=== PATIENT | female | born 1930 | race Caucasian/White ===

== ENCOUNTER 2017-08-03 08:43 | Inpatient (IN) | payer MEDICARE, OTHER ==
[~2017-08-03] VITALS: Ht 162.6 cm; Wt 60.7 kg
[2017-08-03] VITALS (9 sets, daily range): BP systolic 151–243; BP diastolic 67–117; PULSE 45–56; RESP 16–20; TEMP 97.4–97.8; O2SAT 95–99
[~2017-08-03 08:43] MED LIST: AMLO5TAB96 PO; LORTA5 PO; METO50TA PO
[2017-08-03] MEDS ORDERED: SODIUM CHLORIDE 0.9% FLUSH 10 ML FLUSH IVF PRN (09:00)
--- NOTE | 2017-08-03 09:04 | PD ---
HPI Chief Complaint: Dizziness Time Seen by Provider: 09:02 Travel History International Travel<30 days: No Contact w/Intl Traveler<30days: No Traveled to known affect area: No History of Present Illness HPI 87-year-old female patient with history of colon cancer status post hemicolectomy, presents to the ER today because she states that she started having dizziness since yesterday, feels that she is unstable to walk. She denies any difficulty talking, numbness or weakness in arm or leg, headaches, chest pains, fevers, vomiting, abdominal pains, or any other symptoms. She denies any previous symptoms of dizziness. She states her blood pressure has been high over last few days which she has no history of elevated blood pressure. Modifying Factors: None Associated Signs & Symptoms: Dizziness, elevated blood pressure Risk Factors: None PFSH Past Medical History Cancer: No Cardiovascular Problems: No Diabetes: No Endocrine: No Gastrointestinal Disorders: Yes (gerd) Glaucoma: No Genitourinary: No Hepatitis: No Hiatal Hernia: No Hypertension: Yes Immune Disorder: No Musculoskeletal: No Neurologic: No Psychiatric: No Reproductive: No Respiratory: No Thyroid Disease: Yes (thyroid surgery in the past) Influenza Vaccination: Yes ?: Not Past Surgical History Abdominal Surgery: Yes (APPENDECTOMY) AICD: No Cardiac Surgery: No Cholecystectomy: Yes (2002) Ear Surgery: No Endocrine Surgery: No Eye Surgery: No Genitourinary Surgery: No Gynecologic Surgery: Yes (HYSTERECTOMY) Hysterectomy: Yes (1991) Oral Surgery: No Pacemaker: No Thoracic Surgery: No Social History Alcohol Use: No Tobacco Use: No Substance Use: No Allergies-Medications (Allergen,Severity, Reaction): Coded Allergies: No Known Allergies (Verified Allergy, Unknown, 08/03/17) Reported Meds & Prescriptions Reported Meds & Active Scripts Active No Active Prescriptions or Reported Medications Review of Systems Except as stated in HPI: all other systems reviewed are Neg Physical Exam Narrative GENERAL: Well-developed elderly white female patient currently in mild distress at awake and oriented 3. SKIN: Focused skin assessment warm/dry. HEAD: Atraumatic. Normocephalic. EYES: Pupils round, equal and round and reactive to light bilaterally. No scleral icterus. No injection or drainage. ENT: No nasal bleeding or discharge. Mucous membranes pink and moist. NECK: Trachea midline. No JVD. Supple. CARDIOVASCULAR: Regular rate and rhythm. No murmur appreciated. RESPIRATORY: No accessory muscle use. Clear to auscultation. Breath sounds equal bilaterally. GASTROINTESTINAL: Abdomen soft, non-tender, nondistended. Hepatic and splenic margins not palpable. MUSCULOSKELETAL: No obvious deformities. No clubbing. No cyanosis. No edema. NEUROLOGICAL: Awake and alert. No obvious cranial nerve deficits. Motor grossly within normal limits. Normal speech. No pronator drift. PSYCHIATRIC: Appropriate mood and affect; insight and judgment normal. Data Data Last Documented VS Vital Signs Date Time Temp Pulse Resp B/P (MAP) Pulse Ox O2 Delivery O2 Flow Rate FiO2 08/03/17 10:13 48 16 227/78 (127) 98 08/03/17 08:44 97.7 Orders Orders Electrocardiogram (08/03/17 08:56) Complete Blood Count With Diff (08/03/17 08:56) Comprehensive Metabolic Panel (08/03/17 08:56) Ckmb (Isoenzyme) Profile (08/03/17 08:56) Troponin I (08/03/17 08:56) Urinalysis - C+S If Indicated (08/03/17 08:56) Chest, Single Ap (08/03/17 08:56) Ct Brain W/O Iv Contrast(Rout) (08/03/17 08:56) Ecg Monitoring (08/03/17 08:56) Iv Access Insert/Monitor (08/03/17 08:56) Oximetry (08/03/17 08:56) Sodium Chloride 0.9% Flush (Ns Flush) (08/03/17 09:00) Clonidine (Catapres) (08/03/17 09:45) Urine Culture (08/03/17 09:35) Lactic Acid Sepsis Protocol (08/03/17 10:36) Blood Culture (08/03/17 10:36) Piperacil-Tazo 4.5 Gm Premix (Zosyn 4.5 (08/03/17 10:36) Admit Order (Ed Use Only) (08/03/17 10:36) Labs Laboratory Tests Test 08/03/17 09:10 08/03/17 09:35 White Blood Count 7.9 TH/MM3 Red Blood Count 4.52 MIL/MM3 Hemoglobin 13.5 GM/DL Hematocrit 40.4 % Mean Corpuscular Volume 89.4 FL Mean Corpuscular Hemoglobin 29.8 PG Mean Corpuscular Hemoglobin Concent 33.3 % Red Cell Distribution Width 12.7 % Platelet Count 210 TH/MM3 Mean Platelet Volume 8.1 FL Neutrophils (%) (Auto) 72.5 % Lymphocytes (%) (Auto) 22.4 % Monocytes (%) (Auto) 2.5 % Eosinophils (%) (Auto) 2.0 % Basophils (%) (Auto) 0.6 % Neutrophils # (Auto) 5.8 TH/MM3 Lymphocytes # (Auto) 1.8 TH/MM3 Monocytes # (Auto) 0.2 TH/MM3 Eosinophils # (Auto) 0.2 TH/MM3 Basophils # (Auto) 0.0 TH/MM3 CBC Comment DIFF FINAL Differential Comment Blood Urea Nitrogen 25 MG/DL Creatinine 1.30 MG/DL Random Glucose 128 MG/DL Total Protein 6.8 GM/DL Albumin 3.3 GM/DL Calcium Level 8.6 MG/DL Alkaline Phosphatase 88 U/L Aspartate Amino Transf (AST/SGOT) 24 U/L Alanine Aminotransferase (ALT/SGPT) 22 U/L Total Bilirubin 0.4 MG/DL Sodium Level 144 MEQ/L Potassium Level 3.9 MEQ/L Chloride Level 113 MEQ/L Carbon Dioxide Level 21.5 MEQ/L Anion Gap 10 MEQ/L Estimat Glomerular Filtration Rate 39 ML/MIN Total Creatine Kinase 38 U/L Troponin I LESS THAN 0.02 NG/ML Urine Collection Type CLEAN CATCH Urine Color YELLOW Urine Turbidity MOD Urine pH 5.5 Urine Specific [place] 1.015 Urine Protein 30 mg/dL Urine Glucose (UA) NEG mg/dL Urine Ketones NEG mg/dL Urine Occult Blood MOD Urine Nitrite NEG Urine Bilirubin NEG Urine Leukocyte Esterase MOD Urine RBC 10-14 /hpf Urine WBC 20-24 /hpf Urine WBC Clumps FEW Urine Squamous Epithelial Cells > 8 /hpf Urine Amorphous Sediment MOD Urine Bacteria MOD /hpf Microscopic Urinalysis Comment CULTURE INDICATED Urine Collection Time 0935 MDM Medical Decision Making Medical Screen Exam Complete: Yes Emergency Medical Condition: Yes Medical Record Reviewed: Yes Interpretation(s) EKG shows normal sinus rhythm at a rate of 60 bpm with occasional PACs. No signs of acute ST-T elevations or depressions. Laboratory Tests Test 08/03/17 09:10 08/03/17 09:35 Neutrophils (%) (Auto) 72.5 % (16.0-70.0) Blood Urea Nitrogen 25 MG/DL (7-18) Creatinine 1.30 MG/DL (0.50-1.00) Random Glucose 128 MG/DL (74-106) Albumin 3.3 GM/DL (3.4-5.0) Chloride Level 113 MEQ/L (98-107) Estimat Glomerular Filtration Rate 39 ML/MIN (>89) Troponin I LESS THAN 0.02 NG/ML Urine Turbidity MOD (CLEAR) Urine Protein 30 mg/dL (NEG-TRACE) Urine Occult Blood MOD (NEG) Urine Leukocyte Esterase MOD (NEG) Urine RBC 10-14 /hpf (0-3) Urine WBC 20-24 /hpf (0-5) Urine WBC Clumps FEW (NONE) Urine Squamous Epithelial Cells > 8 /hpf (0-5) Urine Bacteria MOD /hpf (NONE) Last [address] 08/03/17 0856 Signed Impressions: Service Date/Time: Thursday, August 03, 2017 09:22 - CONCLUSION: No acute disease. Valdo Schmidt MD Chest X-Ray 08/03/17855 Signed Impressions: Service Date/Time: Thursday, August 03, 2017 09:43 - CONCLUSION: No acute disease. Valdo Schmidt MD Differential Diagnosis Dizzy, elevated blood pressures: Hypertensive urgency versus dehydration versus dysrhythmias versus CVA versus benign positional vertigo Narrative Course Patient was given clonidine 9 for her elevated blood pressure. Initial EKG did not show any signs of acute ST-T changes. CAT scan did not show any signs of acute intracranial processes. She is not having any focal neurological deficits in the ER although she is feeling unsteady. Her lab work shows significant UTI which was treated with IV antibiotics after cultures were drawn. My plan would be to admit her for further evaluation and treatment. Case was discussed with Dr. Marie for admission. Diagnosis Primary Impression: Hypertensive urgency Additional Impression: Abnormal urinalysis Admitting Information Admitting Physician Requests: Admit Scripts No Active Prescriptions or Reported Meds Christen Adams MD Aug 03, 2017 09:04
[2017-08-03 09:24] LABS: AUTOMATED NEUTROPHIL # 5.8 TH/MM3 (1.8-7.7); BASOPHIL % 0.6 % (0.0-2.0); EOSINOPHIL # 0.2 TH/MM3 (0-0.4); HEMATOCRIT 40.4 % (35.0-46.0); HEMO FLAGS DIFF FINAL; LYMPH % 22.4 % (9.0-44.0); LYMPHOCYTE # 1.8 TH/MM3 (1.0-4.8); MEAN CELL VOLUME 89.4 FL (80.0-100.0); MEAN CORPUSCULAR HEMOGLOBIN 29.8 PG (27.0-34.0); MEAN CORPUSCULAR HGB CONC 33.3 % (32.0-36.0); MONO % 2.5 % (0.0-8.0); NEUT % 72.5 % (16.0-70.0); PLATELET COUNT 210 TH/MM3 (150-450); RED BLOOD COUNT 4.52 MIL/MM3 (4.00-5.30); RED CELL DISTRIBUTION WIDTH 12.7 % (11.6-17.2); WHITE BLOOD COUNT 7.9 TH/MM3 (4.0-11.0)
--- NOTE | 2017-08-03 09:36 | RADRPT ---
EXAM DATE/TIME: 08/03/2017 09:22 [facility] COMPARISON: No previous studies available for comparison. INDICATIONS : Dizziness. RADIATION DOSE: 59.09 CTDIvol (mGy) MEDICAL HISTORY : Hypertension. SURGICAL HISTORY : Appendectomy. Cholecystectomy.Hysterectomy. ENCOUNTER: Initial ACUITY: 2 days PAIN SCALE: 0/10 LOCATION: cranial TECHNIQUE: Multiple contiguous axial images were obtained of the head. Using automated exposure control and adj ustment of the mA and/or kV according to patient size, radiation dose was kept as low as reasonably a chievable to obtain optimal diagnostic quality images. DICOM format image data is available electro nically for review and comparison. FINDINGS: CEREBRUM: The ventricles are normal for age. No evidence of midline shift, mass lesion, hemorrhage or acute in farction. No extra-axial fluid collections are seen. POSTERIOR FOSSA: The cerebellum and brainstem are intact. The 4th ventricle is midline. The cerebellopontine angle i s unremarkable. EXTRACRANIAL: The visualized portion of the orbits is intact. SKULL: The calvaria is intact. No evidence of skull fracture. CONCLUSION: No acute disease. Valdo Schmidt MD on August 03, 2017 at 9:32 Board Certified Radiologist. This report was verified electronically.
[2017-08-03] MEDS ORDERED: cloNIDine HCL 0.1 MG TAB PO ONE (09:45)
[2017-08-03 09:49] LABS: BICARBONATE 21.5 MEQ/L (21.0-32.0)
[2017-08-03 09:53] LABS: AST (GOT) 24 U/L (15-37); GLOMERULAR FILTRATION RATE 39 ML/MIN (>89)
[2017-08-03 09:54] LABS: TOTAL BILIRUBIN ADULT 0.4 MG/DL (0.2-1.0)
[2017-08-03 09:56] LABS: ALKALINE PHOSPHATASE 88 U/L (45-117)
[2017-08-03 09:56] LABS: BLOOD, URINE MOD (NEG); GLUCOSE,URINE NEG (NEG); KETONE, URINE NEG (NEG); NITRITE,URINE NEG (NEG); PH, URINE 5.5 (5.0-8.5)
[2017-08-03 09:57] LABS: METHOD OF COLLECTION CLEAN CATCH; URINE COLOR YELLOW (YELLW/STRAW)
[2017-08-03 09:57] LABS: ALT (GPT) 22 U/L (10-53)
[2017-08-03 09:58] LABS: ANION GAP 10 MEQ/L (5-15); BLOOD UREA NITROGEN 25 MG/DL (7-18); CHLORIDE 113 MEQ/L (98-107); POTASSIUM 3.9 MEQ/L (3.5-5.1); SODIUM (NA) 144 MEQ/L (136-145)
[2017-08-03 10:00] LABS: BACTERIA, URINE MOD /hpf; CULTURE IF INDICATED CULTURE INDICATED; SQUAMOUS EPITHELIAL CELL URINE > 8 /hpf (0-5)
[2017-08-03 10:01] LABS: COMMENT (UR) CULTURE INDICATED; COMMENT2 (UR) MUCOUS PRESENT
[2017-08-03 10:04] LABS: CREATINE KINASE 38 U/L (26-192)
--- NOTE | 2017-08-03 10:20 | RADRPT ---
EXAM DATE/TIME: 08/03/2017 09:43 [facility] COMPARISON: CHEST SINGLE AP, January 26, 2015, 15:56. INDICATIONS : Dizzy, weak, palpitations MEDICAL HISTORY : None. SURGICAL HISTORY : None. ENCOUNTER: Initial ACUITY: 2 days PAIN SCORE: 0/10 LOCATION: Bilateral chest FINDINGS: A single view of the chest demonstrates the lungs to be symmetrically aerated without evidence of mas s, infiltrate or effusion. The cardiomediastinal contours are unremarkable. Osseous structures are intact. CONCLUSION: No acute disease. Valdo Schmidt MD on August 03, 2017 at 10:17 Board Certified Radiologist. This report was verified electronically.
[2017-08-03] MEDS ORDERED: PIPERACIL-TAZO 4.5 GM PREMIX 100 ML IV STA (10:36)
--- NOTE | 2017-08-03 11:11 | HHI.HP ---
[facility] Service [facility] Primary Care Physician Silvestre Valente MD Admission Diagnosis hypertensive urgency/dizziness/UTI/sepsis Diagnoses: Chief Complaint: Dizziness Travel History International Travel<30 Days: No Contact w/Intl Traveler <30 Da: No Traveled to Known Affected Are: No History of Present Illness Patient is a 87-year-old female with a remote history of colon cancer and thyroidectomy who comes emergently complaining of excessive dizziness for one day. She could not walk he cause of the dizziness. She had no focal deficits in the limbs or slurred speech. When she came to emergency room her blood pressure was quite elevated at 245/112. Patient has not had any fevers or chills. She has had vague chest discomfort over the last 48 hours but there are no aggravating arm relieving symptoms associated with this. Since she is come to the emergency room she did receive some clonidine with some improvement. Her medical history is significant for hypertension and her reported meds include metoprolol Norvasc and hydrocodone. She denies taking any blood pressure medications for at least a year. She says her doctor took her off of them because her blood pressure was doing well. Patient's been admitted to the hospital for hypertensive urgency and she and her sister are in agreement with this Review of Systems Constitutional: COMPLAINS OF: Dizziness, DENIES: Diaphoretic episodes, Fatigue , Fever, Weight gain, Weight loss, Chills, Change in appetite, Night Sweats Endocrine: DENIES: Abnorml menstrual pattern, Heat/cold intolerance, Polydipsia , Polyuria, Polyphagia Eyes: DENIES: Blurred vision, Diplopia, Eye inflammation, Eye pain, Vision loss , Photosensitivity, Double Vision Ears, nose, mouth, throat: DENIES: Tinnitus, Hearing loss, Vertigo, Nasal discharge, Oral lesions, Throat pain, Hoarseness, Ear Pain, Running Nose, Epistaxis, Sinus Pain, Toothache, Odynophagia Respiratory: DENIES: Apneas, Cough, Snoring, Wheezing, Hemoptysis, Sputum production, Shortness of breath Cardiovascular: COMPLAINS OF: Chest pain, DENIES: Palpitations, Syncope, Dyspnea on Exertion, PND, Lower Extremity Edema, Orthopnea, Claudication Gastrointestinal: DENIES: Abdominal pain, Black stools, Bloody stools, Constipation, Diarrhea, Nausea, Vomiting, Difficulty Swallowing, Anorexia Genitourinary: DENIES: Abnormal vaginal bleeding, Dysmenorrhea, Dyspareunia, Sexual dysfunction, Urinary frequency, Urinary incontinence, Urgency, Hematuria , Dysuria, Nocturia, Vaginal discharge Musculoskeletal: DENIES: Joint pain, Muscle aches, Stiffness, Joint Swelling, Back pain, Neck pain Integumentary: DENIES: Abnormal pigmentation, Pruritus, Rash, Nail changes, Breast masses, Breast skin changes, Nipple discharge Hematologic/lymphatic: DENIES: Bruising, Lymphadenopathy Immunologic/allergic: DENIES: Eczema, Urticaria Neurologic: DENIES: Abnormal gait, Headache, Localized weakness, Paresthesias, Seizures, Speech Problems, Tremor, Poor Balance Psychiatric: DENIES: Anxiety, Confusion, Mood changes, Depression, Hallucinations, Agitation, Suicidal Ideation, Homicidal Ideation, Delusions Except as stated in HPI: all other systems reviewed are Neg Past Family Social History Past Medical History Hypertension, previous the controlled off medications Past Surgical History Thyroidectomy Hysterectomy Reported Medications Reviewed in the EMR, patient denies taking any medications Allergies: Coded Allergies: No Known Allergies (Verified Adverse Reaction, Unknown, 08/03/17) Active Ordered Medications Reviewed in the EMR Family History Does not know her parents history as they quite a while ago, her sister is at the bedside says she has hypertension Social History No current tobacco or alcohol dependency, lives independently Physical Exam Vital Signs Vital Signs Date Time Temp Pulse Resp B/P (MAP) Pulse Ox O2 Delivery O2 Flow Rate FiO2 08/03/17 10:45 45 16 165/67 (99) 97 08/03/17 10:13 48 16 227/78 (127) 98 08/03/17 09:40 49 16 237/117 (157) 98 08/03/17 08:50 98 08/03/17 08:44 97.7 56 16 243/105 (151) 98 Physical Exam GENERAL: This is a well-nourished, well-developed patient, in no apparent distress. SKIN: No rashes, ecchymoses or lesions. Cool and dry. HEAD: Atraumatic. Normocephalic. No temporal or scalp tenderness. EYES: Pupils equal round and reactive. Extraocular motions intact. No scleral icterus. No injection or drainage. ENT: Nose without bleeding, purulent drainage or septal hematoma. Throat without erythema, tonsillar hypertrophy or exudate. Uvula midline. Airway patent. NECK: Trachea midline. No JVD or lymphadenopathy. Supple, nontender, no meningeal signs. CARDIOVASCULAR: Regular rate and rhythm without murmurs, gallops, or rubs. RESPIRATORY: Clear to auscultation. Breath sounds equal bilaterally. No wheezes , rales, or rhonchi. GASTROINTESTINAL: Abdomen soft, non-tender, nondistended. No hepato-splenomegaly , or palpable masses. No guarding. MUSCULOSKELETAL: Extremities without clubbing, cyanosis, or edema. No joint tenderness, effusion, or edema noted. No calf tenderness. Negative Homans sign bilaterally. NEUROLOGICAL: Awake and alert. Cranial nerves II through XII intact. Motor and sensory grossly within normal limits. Five out of 5 muscle strength in all muscle groups. Normal speech. Laboratory Laboratory Tests Test 08/03/17 09:10 08/03/17 09:35 08/03/17 10:45 White Blood Count 7.9 Red Blood Count 4.52 Hemoglobin 13.5 Hematocrit 40.4 Mean Corpuscular Volume 89.4 Mean Corpuscular Hemoglobin 29.8 Mean Corpuscular Hemoglobin Concent 33.3 Red Cell Distribution Width 12.7 Platelet Count 210 Mean Platelet Volume 8.1 Neutrophils (%) (Auto) 72.5 Lymphocytes (%) (Auto) 22.4 Monocytes (%) (Auto) 2.5 Eosinophils (%) (Auto) 2.0 Basophils (%) (Auto) 0.6 Neutrophils # (Auto) 5.8 Lymphocytes # (Auto) 1.8 Monocytes # (Auto) 0.2 Eosinophils # (Auto) 0.2 Basophils # (Auto) 0.0 CBC Comment DIFF FINAL Differential Comment Blood Urea Nitrogen 25 Creatinine 1.30 Random Glucose 128 Total Protein 6.8 Albumin 3.3 Calcium Level 8.6 Alkaline Phosphatase 88 Aspartate Amino Transf (AST/SGOT) 24 Alanine Aminotransferase (ALT/SGPT) 22 Total Bilirubin 0.4 Sodium Level 144 Potassium Level 3.9 Chloride Level 113 Carbon Dioxide Level 21.5 Anion Gap 10 Estimat Glomerular Filtration Rate 39 Total Creatine Kinase 38 Troponin I LESS THAN 0.02 Urine Collection Type CLEAN CATCH Urine Color YELLOW Urine Turbidity MOD Urine pH 5.5 Urine Specific [place] 1.015 Urine Protein 30 Urine Glucose (UA) NEG Urine Ketones NEG Urine Occult Blood MOD Urine Nitrite NEG Urine Bilirubin NEG Urine Leukocyte Esterase MOD Urine RBC 10-14 Urine WBC 20-24 Urine WBC Clumps FEW Urine Squamous Epithelial Cells > 8 Urine Amorphous Sediment MOD Urine Bacteria MOD Microscopic Urinalysis Comment CULTURE INDICATED Urine Collection Time 0935 Date/Time Source Procedure Growth Status 08/03/17 10:45 Blood Peripheral Aerobic Blood Culture Pending Received 08/03/17 10:45 Blood Peripheral Anaerobic Blood Culture Pending Received 08/03/17 09:35 Urine Clean Catch Urine Culture Pending Received Result Diagram: 08/03/17 0910 08/03/17 0910 Imaging Last Impressions Head CT 08/03/17 0856 Signed Impressions: Service Date/Time: Thursday, August 03, 2017 09:22 - CONCLUSION: No acute disease. Valdo Schmidt MD Chest X-Ray 08/03/17 0856 Signed Impressions: Service Date/Time: Thursday, August 03, 2017 09:43 - CONCLUSION: No acute disease. Valdo Schmidt MD Caprini VTE Risk Assessment Caprini VTE Risk Assessment: Mod/High Risk (score >= 2) Caprini Risk Assessment Model Point Value = 1 Point Value = 2 Point Value = 3 Point Value = 5 Age 41-60 Minor surgery BMI > 25 kg/m2 Swollen legs Varicose veins or History of unexplained or recurrent spontaneous Oral contraceptives or hormone replacement Sepsis (< 1 month) Serious lung disease, including pneumonia (< 1 month) Abnormal pulmonary function Acute myocardial infarction Congestive heart failure (< 1 month) History of inflammatory bowel disease Medical patient at bed rest Age 61-74 Arthroscopic surgery Major open surgery (> 45 min) Laparoscopic surgery (> 45 min) Malignancy Confined to bed (> 72 hours) Immobilizing plaster cast Central venous access Age >= 75 History of VTE Family history of VTE Factor V Leiden Prothrombin [id number] Lupus anticoagulant Anticardiolipin antibodies Elevated serum homocysteine Heparin-induced thrombocytopenia Other congenital or acquired thrombophilia Stroke (< 1 month) Elective arthroplasty Hip, pelvis, or leg fracture Acute spinal cord injury (< 1 month) Prophylaxis Regimen Total Risk Factor Score Risk Level Prophylaxis Regimen 0-1 Low Early ambulation 2 Moderate Order ONE of the following: *Sequential Compression Device (SCD) *Heparin 5000 units SQ BID 3-4 Higher Order ONE of the following medications: *Heparin 5000 units SQ TID *Enoxaparin/Lovenox 40 mg SQ daily (WT < 150 kg, CrCl > 30 mL/min) *Enoxaparin/Lovenox 30 mg SQ daily (WT < 150 kg, CrCl > 10-29 mL/min) *Enoxaparin/Lovenox 30 mg SQ BID (WT < 150 kg, CrCl > 30 mL/min) AND/OR *Sequential Compression Device (SCD) 5 or more Highest Order ONE of the following medications: *Heparin 5000 units SQ TID (Preferred with Epidurals) *Enoxaparin/Lovenox 40 mg SQ daily (WT < 150 kg, CrCl > 30 mL/min) *Enoxaparin/Lovenox 30 mg SQ daily (WT < 150 kg, CrCl > 10-29 mL/min) *Enoxaparin/Lovenox 30 mg SQ BID (WT < 150 kg, CrCl > 30 mL/min) AND *Sequential Compression Device (SCD) Assessment and Plan Problem List: (1) Hypertensive urgency ICD Code: I16.0 - Hypertensive urgency Plan: Patient denies taking medications for blood pressure although metoprolol and Norvasc are listed. She says she has blood pressure in the past and had been off medications for at least a year. Will resume blood pressure medications Rule out CVA, MRI pending, CT brain unremarkable (2) Abnormal urinalysis ICD Code: R82.90 - Unspecified abnormal findings in urine Plan: Patient received empiric antibiotics in the emergency room She has no signs or symptoms of a urinary tract infection We'll follow cultures Physician Certification 2 Midnight Certification Type: Admission for Inpatient Services Order for Inpatient Services The services are ordered in accordance with Medicare regulations or non- Medicare payer requirements, as applicable. In the case of services not specified as inpatient-only, they are appropriately provided as inpatient services in accordance with the 2-midnight benchmark. Estimated LOS (days): 3 3 days is the estimated time the patient will need to remain in the hospital, assuming treatment plan goals are met and no additional complications. Post-Hospital Plan: Ilsa Rose MD Aug 03, 2017 11:11
[2017-08-03] MEDS ORDERED: SODIUM CHLORIDE 0.9% FLUSH 10 ML FLUSH IV FLUSH PRN (11:15)
[2017-08-03] MEDS ORDERED: ONDANSETRON HCL 4 MG/2 ML VIAL IVP PRN (11:15)
[2017-08-03] MEDS ORDERED: ACETAMINOPHEN 325 MG TAB PO PRN (11:15)
[2017-08-03] MEDS ORDERED: SENNOSIDES 8.6 MG TAB PO PRN (11:15)
[2017-08-03] MEDS ORDERED: NALOXONE HCL 0.4 MG/ML AMP IV PUSH PRN (11:15)
[2017-08-03] MEDS ORDERED: ENOXAPARIN SODIUM 40 MG/0.4 ML SYRINGE SQ SCH (12:00)
--- NOTE | 2017-08-03 12:34 | EKG ---
Date Performed: 08/03/2017 Time Performed: 09:40:46 PTAGE: 87 years EKG: Sinus rhythm WITH OCCASIONAL SUPRAVENTRICULAR PREMATURE COMPLEXES, NONSPECIFIC ST ABNORMALITY ABNORMAL ECG PREVIOUS TRACING : 03/26/2015 20.49 Compared to previous tracing, sinus rhythm has replaced atr ial fibrillation, heart rate has decreased. DOCTOR: Nicholas Leger Interpretating Date/Time 08/03/2017 12:33:07
--- NOTE | 2017-08-03 13:48 | RADRPT ---
EXAM DATE/TIME: 08/03/2017 11:51 [facility] COMPARISON: No previous studies available for comparison. INDICATIONS : Cerebrovascular accident. MEDICAL HISTORY : Thyroid disease. HTN. GERD. SURGICAL HISTORY : Appendectomy. Hysterectomy. Cholecystectomy. Thyroid surgery. ENCOUNTER: Initial ACUITY: 1 day PAIN SCORE: 0/10 LOCATION: Bilateral neck PEAK SYSTOLIC VELOCITIES (cm/sec): ICA/CCA RATIO: Right: 2.3 Left: 1.3 ICA: Right: 129 Left: 95 CCA: Right: 56 Left: 76 ECA: Right: 63 Left: 78 VERTEBRAL: Right: 44 antegrade Left: 77 antegrade Elevated flow velocities and ICA/CCA ratios have been found to correlate with increased degrees of vessel stenosis, calculated as percentage of diameter relative to a normal segment of distal ICA/CCA FINDINGS: RIGHT CAROTID: There is slight elevation of the peak systolic velocity of the right ICA and an elevated ICA/CCA rati o suggesting 50-69% stenosis on the right. LEFT CAROTID: No significant stenosis is visualized. The waveforms are within normal limits. VERTEBRAL ARTERIES: Antegrade flow is seen in both vertebral arteries. MISCELLANEOUS: None. CONCLUSION: Slight elevation of the peak systolic velocity of the right ICA and elevated ICA/CCA ratio suggesting 50-69% stenosis on the right. Valdo Schmidt MD on August 03, 2017 at 13:44 Board Certified Radiologist. This report was verified electronically.
--- NOTE | 2017-08-03 17:01 | RADRPT ---
EXAM DATE/TIME: 08/03/2017 16:33 [facility] COMPARISON: No previous studies available for comparison. INDICATIONS : Dizziness. MEDICAL HISTORY : Hypertension. Carcinoma, colon. SURGICAL HISTORY : Thyroidectomy. Appendectomy. Hysterectomy. ENCOUNTER: Initial ACUITY: 1 day PAIN SCORE: 0/10 LOCATION: cranial TECHNIQUE: Multiplanar, multisequence MRI of the brain was performed without contrast. FINDINGS: CEREBRUM: The ventricles and cortical sulci are widened. No evidence of midline shift, mass lesion, hemorrhage or acute infarction. No extraaxial fluid collections are seen. The pituitary gland and suprasellar cistern are normal in configuration. WHITE MATTER: There are some scattered mild focal areas of signal abnormality within the cerebral white matter. POSTERIOR FOSSA: The cerebellum and brainstem are intact. The 4th ventricle is midline. The cerebellopontine angle is unremarkable. The cerebellar tonsils are normal in position. DIFFUSION IMAGING: No focal areas of restricted diffusion are seen. No evidence of acute infarction. EXTRACRANIAL: The visualized portions of the orbits and paranasal sinuses are unremarkable. CONCLUSION: 1. No acute intracranial abnormality seen. 2. Scattered suspected small vessel ischemic change in the white matter. 3. Mild age-related atrophy. Roe Menendez MD on August 03, 2017 at 16:55 Board Certified Radiologist. This report was verified electronically.
[2017-08-03] MEDS: HYDROCHLOROTHIAZIDE 25 MG TAB PO SCH (17:51)
[2017-08-03] MEDS: aMILoride HCL 5 MG TAB PO SCH (17:51)
[2017-08-03] MEDS: SODIUM CHLORIDE 0.9% FLUSH 10 ML FLUSH IV FLUSH SCH (21:25)
[2017-08-04] VITALS: BP 158/78; PULSE 63; RESP 18; TEMP 97.6; O2SAT 96
[2017-08-04 06:13] LABS: BASOPHIL % 0.4 % (0.0-2.0); EOSINOPHIL # 0.2 TH/MM3 (0-0.4); EOSINOPHIL % 3.1 % (0.0-4.0); HEMATOCRIT 35.9 % (35.0-46.0); HEMO FLAGS DIFF FINAL; LYMPH % 25.8 % (9.0-44.0); LYMPHOCYTE # 1.6 TH/MM3 (1.0-4.8); MEAN CELL VOLUME 91.8 FL (80.0-100.0); MEAN CORPUSCULAR HEMOGLOBIN 30.3 PG (27.0-34.0); NEUT % 65.7 % (16.0-70.0); PLATELET COUNT 177 TH/MM3 (150-450); RED BLOOD COUNT 3.91 MIL/MM3 (4.00-5.30); RED CELL DISTRIBUTION WIDTH 12.9 % (11.6-17.2); WHITE BLOOD COUNT 6.1 TH/MM3 (4.0-11.0)
[2017-08-04 06:17] LABS: POTASSIUM 3.9 MEQ/L (3.5-5.1)
[2017-08-04 06:20] LABS: BICARBONATE 23.3 MEQ/L (21.0-32.0)
[2017-08-04 08:00] VITALS: BP 206/90; PULSE 51; PULSE 58; RESP 18; TEMP 97.4; O2SAT 98
[2017-08-04] MEDS: aMILoride HCL 5 MG TAB PO SCH (08:34)
[2017-08-04] MEDS: SODIUM CHLORIDE 0.9% FLUSH 10 ML FLUSH IV FLUSH SCH ×2 (08:34→21:11)
[2017-08-04] MEDS: HYDROCHLOROTHIAZIDE 25 MG TAB PO SCH (08:34)
[2017-08-04] MEDS ORDERED: amLODIPine BESYLATE 5 MG TAB PO SCH (09:00)
[2017-08-04 11:10] VITALS: BP 193/76
[2017-08-04] MEDS: ENALAPRILAT 1.25 MG/ML VIAL IV PUSH PRN (11:15)
[2017-08-04] MEDS: ENOXAPARIN SODIUM 30 MG/0.3 ML SYRINGE SQ SCH (11:20)
--- NOTE | 2017-08-04 11:58 | HHI.PR ---
Subjective Remarks Patient seen today in follow-up for hypertensive urgency. Still a bit dizzy when ambulating. Blood pressure 206/90 and heart rate in the 50s no chest pain or shortness of breath Imaging results discussed with patient and sister at bedside Care plan discussed with Clif FREEMAN Objective Vitals Vital Signs Date Time Temp Pulse Resp B/P (MAP) Pulse Ox O2 Delivery O2 Flow Rate FiO2 08/04/17 11:10 193/76 (115) 08/04/17 08:00 97.4 58 18 206/90 (128) 98 08/04/17 00:00 97.6 63 18 158/78 (104) 96 08/03/17 20:00 97.4 56 17 170/73 (105) 95 08/03/17 13:00 97.8 47 16 151/93 (112) 99 08/03/17 12:42 46 08/03/17 12:21 I/O 08/03/17 08/03/17 08/03/17 08/04/17 08/04/17 08/04/17 07:00 15:00 23:00 07:00 15:00 23:00 Intake Total 100 ml 480 ml Output Total 3 ml Balance 100 ml 480 ml -3 ml Intake Oral 480 ml IV Total 100 ml Output Urine Total 3 ml # Voids 1 Result Diagram: 08/04/17 0522 08/04/17 0522 Imaging Last Impressions Head CT 08/03/17 0856 Signed Impressions: Service Date/Time: Thursday, August 03, 2017 09:22 - CONCLUSION: No acute disease. Valdo Schmidt MD Chest X-Ray 08/03/17 0856 Signed Impressions: Service Date/Time: Thursday, August 03, 2017 09:43 - CONCLUSION: No acute disease. Valdo Schmidt MD Carotid Artery Ultrasound 08/03/17 0000 Signed Impressions: Service Date/Time: Thursday, August 03, 2017 11:51 - CONCLUSION: Slight elevation of the peak systolic velocity of the right ICA and elevated ICA/CCA ratio suggesting 50-69%% stenosis on the right. Valdo Schmidt MD Brain MRI 08/03/17 0000 Signed Impressions: Service Date/Time: Thursday, August 03, 2017 16:33 - CONCLUSION: 1. No acute intracranial abnormality seen. 2. Scattered suspected small vessel ischemic change in the white matter. 3. Mild age-related atrophy. Roe Menendez MD Objective Remarks GENERAL: This is a well-nourished, well-developed patient, in no apparent distress. CARDIOVASCULAR: Regular rate and rhythm without murmurs, gallops, or rubs. RESPIRATORY: Clear to auscultation. Breath sounds equal bilaterally. No wheezes , rales, or rhonchi. GASTROINTESTINAL: Abdomen soft, non-tender, nondistended. Normal active bowel sounds MUSCULOSKELETAL: Extremities without clubbing, cyanosis, or edema. NEURO: Alert & Oriented x4 to person, place, time, situation. Moves all ext x4 A/P Problem List: (1) Hypertensive urgency ICD Code: I16.0 - Hypertensive urgency Plan: Neg for cva libby he follow for improvements HR in the 50's no bb IV bp meds prn (2) Abnormal urinalysis ICD Code: R82.90 - Unspecified abnormal findings in urine Plan: Patient received empiric antibiotics in the emergency room She has no signs or symptoms of a urinary tract infection We'll follow cultures Discharge Planning Ilsa Mcwilliams am, MD Aug 04, 2017 11:58
[2017-08-04] MEDS ORDERED: CARVEDILOL 6.25 MG TAB PO SCH (12:00)
[2017-08-04] MEDS ORDERED: LOSARTAN 25 MG TAB PO SCH (12:00)
[2017-08-04] MEDS: ASPIRIN EC 81 MG TABEC PO SCH (12:45)
--- NOTE | 2017-08-04 15:21 | ECHRPT ---
Indication: htn h disease CONCLUSIONS Normal left ventricular size. The left ventricular systolic function is normal with an estimated ejection fraction in the range of 55-60%. Mild mitral valve regurgitation. Trileaflet aortic valve Mild aortic valve regurgitation There is mild tricuspid valve regurgitation. The estimated pulmonary arterial pressure is 33 mmHg. BP: / HR: Rhythm: MEASUREMENTS (Male / Female) Normal Values Technical Quality:Poor 2D ECHO LV Diastolic Diameter PLAX 4.1 cm 4.2 - 5.9 / 3.9 - 5.3 cm LV Systolic Diameter PLAX 3.1 cm IVS Diastolic Thickness 1.4 cm 0.6 - 1.0 / 0.6 - 0.9 cm LVPW Diastolic Thickness 1.5 cm 0.6 - 1.0 / 0.6 - 0.9 cm LV Relative Wall Thickness 0.7 RV Internal Dim ED PLAX 2.8 cm M-MODE Aortic Root Diameter MM 3.1 cm LA Systolic Diameter MM 3.4 cm LA Ao Ratio MM 1.1 AV Cusp Separation MM 2.0 cm DOPPLER AI Peak Velocity 100.0 cm/s AI Peak Gradient 4.0 mmHg AI Pressure Half Time 611.0 ms Mitral E Point Velocity 45.9 cm/s Mitral A Point Velocity 89.3 cm/s Mitral E to A Ratio 0.5 LV E' Lateral Velocity 6.1 cm/s Mitral E to LV E' Lateral Ratio 7.5 LV E' Septal Velocity 8.9 cm/s Mitral E to LV E' Septal Ratio 5.2 TR Peak Velocity 242.0 cm/s TR Peak Gradient 23.4 mmHg Right Atrial Pressure 10.0 mmHg Pulmonary Artery Systolic Pressu 33.4 mmHg Right Ventricular Systolic Press 33.4 mmHg FINDINGS LEFT VENTRICLE Normal left ventricular size. The left ventricular systolic function is normal with an estimated ejection fraction in the range of 55-60%. RIGHT VENTRICLE Normal right ventricular size and systolic function. LEFT ATRIUM The left atrial size is normal. RIGHT ATRIUM The right atrial size is normal. ATRIAL SEPTUM Normal atrial septal thickness without atrial level shunting by limited color doppler interrogation. AORTA The aortic root and proximal ascending aorta are normal in size on limited imaging. MITRAL VALVE Structurally normal mitral valve. Mild mitral valve regurgitation. AORTIC VALVE Trileaflet aortic valve mild aortic valve regurgitation AI p1/2 611 TRICUSPID VALVE Structurally normal tricuspid valve. There is mild tricuspid valve regurgitation. The estimated pulmonary arterial pressure is 33.4 mmHg. PULMONARY VALVE No pulmonary valve regurgitation or stenosis. VESSELS The inferior vena cava is normal in size. PERICARDIUM No pericardial effusion. Rosalia Burrows MD, FACC (Electronically Signed) Final Date:04 August 2017 15:21
[2017-08-04 16:00] VITALS: BP 167/75; PULSE 64; RESP 20; TEMP 97.8; O2SAT 97
[2017-08-04 16:58] VITALS: BP 167/75
--- NOTE | 2017-08-04 17:13 | HHI.DCPOC ---
Discharge Care Plan Diagnosis: (1) Hypertensive urgency Goals to Promote Your Health * To prevent worsening of your condition and complications * To maintain your health at the optimal level Directions to Meet Your Goals Take your medications as prescribed Follow your dietary instruction Follow activity as directed Keep your appointments as scheduled Take your immunizations and boosters as scheduled If your symptoms worsen call your PCP, if no PCP go to Urgent Care Center or Emergency Room Smoking is Dangerous to Your Health. Avoid second hand smoke Call the 24-hour hour crisis hotline for domestic abuse at Ilsa Marie MD Aug 04, 2017 17:13
[2017-08-04 20:00] VITALS: BP 178/98; PULSE 57; RESP 18; TEMP 98.1; O2SAT 96
[2017-08-05] VITALS: BP 200/79; PULSE 59; RESP 18; TEMP 97.2; O2SAT 95
[2017-08-05] MEDS: ENALAPRILAT 1.25 MG/ML VIAL IV PUSH PRN (00:07)
[2017-08-05] MEDS ORDERED: LOSARTAN 50 MG TAB PO SCH (09:00)
[2017-08-05] MEDS ORDERED: NIFEdipine 60 MG SUSTAINED RELEASE TAB PO SCH (09:00)
[2017-08-05 09:24] VITALS: BP 199/81; PULSE 58; RESP 18; TEMP 96.7; O2SAT 95
[2017-08-05] MEDS: ASPIRIN EC 81 MG TABEC PO SCH (10:00)
[2017-08-05] MEDS: SODIUM CHLORIDE 0.9% FLUSH 10 ML FLUSH IV FLUSH SCH (10:00)
[2017-08-05] MEDS: ENOXAPARIN SODIUM 30 MG/0.3 ML SYRINGE SQ SCH (12:02)
[2017-08-05] MEDS ORDERED: NIFE60TA8 PO (13:44)
[2017-08-05] MEDS ORDERED: COZA50TA PO (13:44)
--- NOTE | 2017-08-05 13:45 | HHI.DS ---
Discharge Summary Admission Date Aug 03, 2017 at 10:39 am Discharge Date: Aug 05, 2017 Admitting Diagnosis hypertensive urgency/dizziness/UTI/sepsis (1) Hypertensive urgency ICD Code: I16.0 - Hypertensive urgency (2) Abnormal urinalysis ICD Code: R82.90 - Unspecified abnormal findings in urine Procedures None. Brief History - From Admission Patient is a 87-year-old female with a remote history of colon cancer and thyroidectomy who comes emergently complaining of excessive dizziness for one day. She could not walk he cause of the dizziness. She had no focal deficits in the limbs or slurred speech. When she came to emergency room her blood pressure was quite elevated at 245/112. Patient has not had any fevers or chills. She has had vague chest discomfort over the last 48 hours but there are no aggravating arm relieving symptoms associated with this. Since she is come to the emergency room she did receive some clonidine with some improvement. Her medical history is significant for hypertension and her reported meds include metoprolol Norvasc and hydrocodone. She denies taking any blood pressure medications for at least a year. She says her doctor took her off of them because her blood pressure was doing well. Patient's been admitted to the hospital for hypertensive urgency and she and her sister are in agreement with this CBC/BMP: 08/04/17 0522 08/04/17 0522 Significant Findings Laboratory Tests Test 08/03/17 09:10 08/03/17 09:35 08/03/17 10:45 08/03/17 13:01 Neutrophils (%) (Auto) 72.5 % (16.0-70.0) Blood Urea Nitrogen 25 MG/DL (7-18) Creatinine 1.30 MG/DL (0.50-1.00) Random Glucose 128 MG/DL (74-106) Albumin 3.3 GM/DL (3.4-5.0) Chloride Level 113 MEQ/L (98-107) Estimat Glomerular Filtration Rate 39 ML/MIN (>89) Troponin I LESS THAN 0.02 NG/ML LESS THAN 0.02 NG/ML Urine Turbidity MOD (CLEAR) Urine Protein 30 mg/dL (NEG-TRACE) Urine Occult Blood MOD (NEG) Urine Leukocyte Esterase MOD (NEG) Urine RBC 10-14 /hpf (0-3) Urine WBC 20-24 /hpf (0-5) Urine WBC Clumps FEW (NONE) Urine Squamous Epithelial Cells > 8 /hpf (0-5) Urine Bacteria MOD /hpf (NONE) Test 08/03/17 17:46 08/04/17 05:22 Troponin I LESS THAN 0.02 NG/ML Red Blood Count 3.91 MIL/MM3 (4.00-5.30) Blood Urea Nitrogen 27 MG/DL (7-18) Creatinine 1.40 MG/DL (0.50-1.00) Random Glucose 107 MG/DL (74-106) Sodium Level 146 MEQ/L (136-145) Chloride Level 115 MEQ/L (98-107) Estimat Glomerular Filtration Rate 35 ML/MIN (>89) Imaging Last Impressions Head CT 08/03/17 0856 Signed Impressions: Service Date/Time: Thursday, August 03, 2017 09:22 - CONCLUSION: No acute disease. Valdo Schmidt MD Chest X-Ray 08/03/17 0856 Signed Impressions: Service Date/Time: Thursday, August 03, 2017 09:43 - CONCLUSION: No acute disease. Valdo Schmidt MD Carotid Artery Ultrasound 08/03/17 0000 Signed Impressions: Service Date/Time: Thursday, August 03, 2017 11:51 - CONCLUSION: Slight elevation of the peak systolic velocity of the right ICA and elevated ICA/CCA ratio suggesting 50-69%% stenosis on the right. Valdo Schmidt MD Brain MRI 08/03/17 0000 Signed Impressions: Service Date/Time: Thursday, August 03, 2017 16:33 - CONCLUSION: 1. No acute intracranial abnormality seen. 2. Scattered suspected small vessel ischemic change in the white matter. 3. Mild age-related atrophy. Roe Menendez MD PE at Discharge GENERAL: This is a well-nourished, well-developed patient, in no apparent distress. CARDIOVASCULAR: Regular rate and rhythm without murmurs, gallops, or rubs. RESPIRATORY: Clear to auscultation. Breath sounds equal bilaterally. No wheezes , rales, or rhonchi. GASTROINTESTINAL: Abdomen soft, non-tender, nondistended. Normal active bowel sounds MUSCULOSKELETAL: Extremities without clubbing, cyanosis, or edema. NEURO: Alert & Oriented x4 to person, place, time, situation. Moves all ext x4 Pt update on day of discharge Patient is currently doing well. No CP, SOB, fever, chills. She is ambulating well. Hospital Course Ms. Pitts was admitted due to hypertensive urgency. Chest x-ray, CT head, brain MRI, carotid ultrasound were all unremarkable for any acute findings. Patient was started on blood pressure medications. Patient remained symptom- free - no chest pain, shortness of breath, fever or chills. She was subsequently discharged home on blood pressure medications. Patient is advised to monitor her blood pressure at home as well as follow-up with her primary care physician with regards to blood pressure. Patient was evaluated by physical therapy and did not require any SNF or home health. Pt Condition on Discharge: Good Discharge Disposition: Discharge Home Discharge Time: <= 30 minutes Discharge Instructions DIET: Follow Instructions for: Heart Healthy Diet Activities you can perform: Regular-No Restrictions Follow up Referrals: PCP Follow-up - 1 Week New Medications: Losartan (Cozaar) 50 Mg Tab 50 MG PO DAILY for Blood Pressure Management, #30 TAB 3 Refills Nifedipine ER 24 HR (Nifedipine ER 24 HR) 60 Mg Tab 60 MG PO DAILY for Blood Pressure Management, #30 TAB 3 Refills Addi Coles DO Aug 05, 2017 1:45 pm
== END 2017-08-05 14:33 | disposition home or self-care (01) | DRG 305 ==
LOC: PHED 08:43 → PHEDA 10:39 → PH3B 12:16
PROVIDERS: ADMIT Hospitalist; ATTEND Hospitalist
DX: I16.0 Hypertensive urgency (principal); E89.0 Postprocedural hypothyroidism; I10 Essential (primary) hypertension; K21.9 Gastro-esophageal reflux disease without esophagitis; R42 Dizziness and giddiness; R82.90 Unspecified abnormal findings in urine; Z85.038 Personal history of other malignant neoplasm of large intestine
CPT/HCPCS: 70450; 70551; 71010; 80048; 80053; 81001; 82550; 83605; 84443; 84484; 85025; 87040; 87086; 93005; 93306; 93880; J1650; J2543